=== PATIENT | male | born 1955 | race Asian ===

== ENCOUNTER 2017-06-08 23:09 | Emergency (ER) | payer OTHER ==
[~2017-06-08] VITALS: Ht 162.6 cm; Wt 69.9 kg
[2017-06-08 23:11] VITALS: BP 152/97
--- NOTE | 2017-06-08 23:16 | NUR ---
PT TAKEN TO BED 11
--- NOTE | 2017-06-08 23:30 | NUR ---
PATIENT PRESENTS TO ED WITH HIGH BLOOD PRESSURE X1 DAY. PT DENIES N/V/D; SKIN IS PINK/WARM/DRY; AAOX4 WITH EVEN AND STEADY GAIT; LUNGS CLEAR BL; HR EVEN AND REGULAR; PT DENIES ANY FEVER, CP, SOB, OR COUGH AT THIS TIME; PATIENT STATES PAIN OF 0/10 AT THIS TIME; VSS; PATIENT POSITIONED FOR COMFORT; HOB ELEVATED; BEDRAILS UP X1; BED DOWN. ER MD MADE AWARE OF PT STATUS.
[2017-06-09 00:44] VITALS: BP 129/89
--- NOTE | 2017-06-09 00:44 | NUR ---
Patient discharged with v/s stable. Written and verbal after care instructions given and explained. Patient verbalized understanding. Ambulatory with steady gait. All questions addressed prior to discharge. Advised to follow up with PMD.
== END 2017-06-09 00:44 | disposition home or self-care (01) ==
LOC: MED 23:09
DX: I10 Essential (primary) hypertension (principal)
CPT/HCPCS: 93005; 99283